=== PATIENT | male | born 1990 | race Caucasian/White ===

== ENCOUNTER 2019-06-20 16:31 | Emergency (ER) | payer MEDICAID, OTHER ==
[~2019-06-20] VITALS: Ht 185.4 cm; Wt 72.0 kg
[2019-06-20 16:36] VITALS: BP 148/99
--- NOTE | 2019-06-20 16:41 | NUR ---
This is a 28 y/o male arriving from [facility]. Pt was arrested for illict drug use. 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 Pt has about a base ball sized abcess on each forearm. Pts abcess are open wounds that are draining purulent fluid. Pt reprots that they are painful. Pt in room with officer at bedside. Pt is remaining in custody at this time.
--- NOTE | 2019-06-20 17:17 | NUR ---
WOUNDS CLEANED AND DRESSED.
--- NOTE | 2019-06-20 17:18 | NUR ---
Patient/Caregiver given discharge instructions and they have confirmed that they understand the instructions. Patient ambulatory with steady gait. P dc in custody of [employer].
== END 2019-06-20 17:20 | disposition home or self-care (01) ==
LOC: ED 17:14
DX: L03.113 Cellulitis of right upper limb (principal); L03.114 Cellulitis of left upper limb; F17.200 Nicotine dependence, unspecified, uncomplicated
CPT/HCPCS: 99283

== ENCOUNTER 2019-07-14 17:35 | Emergency (ER) | payer MEDICAID ==
--- NOTE | 2019-07-14 17:42 | NUR ---
NO RESPONSE FROM [facility] FOR X3.
--- NOTE | 2019-07-14 17:50 | NUR ---
NO RESPONSE FROM [facility] AT THIS TIME AFTER 2 CALLS.
--- NOTE | 2019-07-14 18:23 | NUR ---
PT STILL NOT IN LOBBY. PT NAME CALLED 3 TIMES, NO RESPONSE FROM [facility]OB[facility].
== END 2019-07-14 18:25 | disposition left against medical advice (07) ==
LOC: ED 18:18
DX: Z53.21 Procedure and treatment not carried out due to patient leaving prior to being seen by health care provider (principal)